=== PATIENT | male | born 1980 | race Asian ===

== ENCOUNTER 2017-05-25 08:49 | Observation (INO) | payer BC, MEDICAID ==
[~2017-05-25] VITALS: Ht 182.9 cm; Wt 109.5 kg
[~2017-05-25 08:49] MED LIST: ALBU18HF INH; UNK BP MED PO
[2017-05-25] MEDS ORDERED: LISI-170 PO (09:13)
[2017-05-25] MEDS ORDERED: ASPIRIN 81 MG TABLET CHEW ONE (09:18)
[2017-05-25] MEDS ORDERED: SODIUM CHLORIDE FLUSH 10ML SYR IVF ONE (09:30)
[2017-05-25] MEDS ORDERED: ASPIRIN 81 MG TABLET CHEW PO ONE (09:30)
[2017-05-25 09:33] LABS: BASOPHILS # (AUTO) 0.02 x10^3/uL (0-0.1); BASOPHILS % (AUTO) 0 % (0-1); EOSINOPHILS % (AUTO) 7 % (1-7); LYMPHOCYTES # (AUTO) 1.61 x10^3/uL (1-3.4); LYMPHOCYTES % (AUTO) 22 % (22-44); MD NO; MEAN CORPUSCULAR HEMOGLOBIN 29.9 pg (27.5-34.5); MEAN CORPUSCULAR HGB CONC 33.7 g/dL (33.2-36.2); MEAN CORPUSCULAR VOLUME 88.9 fL (81-97); MEAN PLATELET VOLUME 7.1 fL (7.4-10.4); MONOCYTES # (AUTO) 0.54 x10^3/uL (0.2-0.8); MONOCYTES % (AUTO) 8 % (2-9); NEUTROPHILS # (AUTO) 4.57 x10^3/uL (1.8-6.8); NEUTROPHILS % (AUTO) 63 % (42-75); PLATELET COUNT 316 x10^3/uL (130-400); RED BLOOD COUNT 5.56 x10^6/uL (4.38-5.82); RED CELL DISTRIBUTION WIDTH 12.7 % (9.4-14.8)
[2017-05-25 09:46] LABS: ALBUMIN 3.7 g/dL (3.4-5.0); ANION GAP 6 mmol/L (5-15); CALCIUM 8.2 mg/dL (8.5-10.1); CHLORIDE 105 mmol/L (98-107)
[2017-05-25 09:51] LABS: CREATININE 1.07 mg/dL (0.7-1.3); TROPONIN I 0.018 ng/mL (0.000-0.045)
[2017-05-25] MEDS ORDERED: LABETALOL 5MG/ML, 20ML ONE (10:30)
[2017-05-25] MEDS: LABETALOL 5MG/ML, 20ML IVPush PRN ×2 (10:33→11:11)
[2017-05-25] MEDS ORDERED: ALBUTEROL/IPRATROPIUM 2.5MG/0.5MG, 3 ML ONE (12:30)
[2017-05-25] MEDS: NICOTINE 14MG/24 HR PATCH.TD24 TD SCH (13:00)
[2017-05-25] MEDS ORDERED: ALBUTEROL/IPRATROPIUM 2.5MG/0.5MG, 3 ML NPPB ONE (13:00)
[2017-05-25] MEDS ORDERED: LABETALOL 5MG/ML, 20ML IVPush PRN (13:00)
[2017-05-25] MEDS ORDERED: hydrALAzine 20 MG/ML, 1ML IVPush PRN (13:00)
[2017-05-25] MEDS: LISINOPRIL 20 MG TABLET PO SCH (13:56)
[2017-05-25 14:04] VITALS: BP 183/125
[2017-05-25 14:15] LABS: TROPONIN I < 0.015 ng/mL (0.000-0.045)
[2017-05-25 15:28] VITALS: BP 154/102
[2017-05-25] MEDS: ALBUTEROL SULFATE 2.5 MG/3 ML NPPB SCH ×2 (19:00→20:00)
[2017-05-25 19:19] LABS: TROPONIN I < 0.015 ng/mL (0.000-0.045)
[2017-05-25 19:32] VITALS: BP_SYST 158; BP_SYST 159; BP_DIAS 101; BP_DIAS 81
[2017-05-25 21:11] LABS: MICROSCOPIC NOT IND
[2017-05-25 21:23] LABS: AMPHETAMINE SCREEN, URINE Negative (Negative); BARBITURATE SCREEN, URINE Negative (Negative); BENZODIAZEPINE SCREEN, URINE Negative (Negative); CANNABINOID SCREEN, URINE Positive (Negative); COCAINE SCREEN, URINE Negative (Negative); CULTURE INDICATED? NO; METHADONE SCREEN, URINE Negative (Negative); OPIATE SCREEN, URINE Negative (Negative)
[2017-05-26 03:00] VITALS: BP 143/79
[2017-05-26] MEDS: ALBUTEROL SULFATE 2.5 MG/3 ML NPPB SCH ×4 (05:44→17:28)
[2017-05-26 05:45] LABS: BASOPHILS # (AUTO) 0.03 x10^3/uL (0-0.1); BASOPHILS % (AUTO) 0 % (0-1); EOSINOPHILS # (AUTO) 0.62 x10^3/uL (0-0.4); EOSINOPHILS % (AUTO) 7 % (1-7); LYMPHOCYTES # (AUTO) 2.13 x10^3/uL (1-3.4); LYMPHOCYTES % (AUTO) 25 % (22-44); MD NO; MEAN CORPUSCULAR HEMOGLOBIN 30.2 pg (27.5-34.5); MEAN CORPUSCULAR HGB CONC 33.8 g/dL (33.2-36.2); MEAN CORPUSCULAR VOLUME 89.4 fL (81-97); MEAN PLATELET VOLUME 7.4 fL (7.4-10.4); MONOCYTES # (AUTO) 0.52 x10^3/uL (0.2-0.8); MONOCYTES % (AUTO) 6 % (2-9); NEUTROPHILS # (AUTO) 5.28 x10^3/uL (1.8-6.8); NEUTROPHILS % (AUTO) 62 % (42-75); PLATELET COUNT 331 x10^3/uL (130-400); RED BLOOD COUNT 5.14 x10^6/uL (4.38-5.82); RED CELL DISTRIBUTION WIDTH 12.5 % (9.4-14.8)
[2017-05-26 05:55] LABS: CHLORIDE 106 mmol/L (98-107)
[2017-05-26 06:11] LABS: ANION GAP 6 mmol/L (5-15); CALCIUM 8.1 mg/dL (8.5-10.1); CREATININE 1.06 mg/dL (0.7-1.3); THYROID STIMULATING HORMONE 0.821 mIU/L (0.358-3.740)
[2017-05-26 07:06] VITALS: BP 138/85
[2017-05-26] MEDS: LISINOPRIL 20 MG TABLET PO SCH (07:18)
[2017-05-26 12:43] VITALS: BP 161/79
[2017-05-26] MEDS: NICOTINE 14MG/24 HR PATCH.TD24 TD SCH (13:00)
[2017-05-26] MEDS ORDERED: NICO-487 TD (16:03)
== END 2017-05-26 17:59 | disposition home or self-care (01) ==
LOC: ED 09:16 → INTOOBSV 10:35 → EDIP 10:35 → 5SO 13:44
PROVIDERS: ADMIT Family Medicine; ATTEND Family Medicine
DX: I16.0 Hypertensive urgency (principal); I10 Essential (primary) hypertension; J45.909 Unspecified asthma, uncomplicated; F10.10 Alcohol abuse, uncomplicated; E83.51 Hypocalcemia; F17.210 Nicotine dependence, cigarettes, uncomplicated
CPT/HCPCS: 36415; 71045; 80048; 80307; 81003; 82040; 82330; 83880; 84443; 84484; 85025; 93005; 93306; 93975; 94640; 96374; 96376; 99285; G0378; J7613; J7620

== ENCOUNTER 2018-03-24 08:51 | Observation (INO) | payer BC ==
[~2018-03-24] VITALS: Ht 188 cm; Wt 115.1 kg
[~2018-03-24 08:51] MED LIST changes: +LISI-170 PO; +NICO-487 TD
[2018-03-24] MEDS ORDERED: MORPHINE SULFATE 4 MG/ML, 1ML IVPush PRN (09:30)
[2018-03-24] MEDS ORDERED: SODIUM CHLORIDE FLUSH 10ML SYR IVF ONE (09:30)
[2018-03-24] MEDS ORDERED: ASPIRIN 81 MG TABLET CHEW PO ONE (09:30)
--- NOTE | 2018-03-24 09:30 | NUR ---
C/O CHEST PAIN AND COUGH X 3 DAYS. PT IS ON ALL MNITORS WITH AUDIBLE ALARMS. SIGNIF. OTHER IS AT BEDISDE. CALL LIGHT IS WITHIN REACH. IV ACCESS OBTAINED.
[2018-03-24] MEDS ORDERED: ASPIRIN 81 MG TABLET CHEW ONE (09:43)
[2018-03-24 09:44] LABS: BASOPHILS # (AUTO) 0.03 x10^3/uL (0-0.1); BASOPHILS % (AUTO) 0 % (0-1); EOSINOPHILS # (AUTO) 0.68 x10^3/uL (0-0.4); EOSINOPHILS % (AUTO) 9 % (1-7); LYMPHOCYTES # (AUTO) 1.14 x10^3/uL (1-3.4); LYMPHOCYTES % (AUTO) 14 % (22-44); MD NO; MEAN CORPUSCULAR HEMOGLOBIN 30.3 pg (27.5-34.5); MEAN CORPUSCULAR HGB CONC 34.1 g/dL (33.2-36.2); MEAN CORPUSCULAR VOLUME 88.8 fL (81-97); MEAN PLATELET VOLUME 7.8 fL (7.4-10.4); MONOCYTES # (AUTO) 0.53 x10^3/uL (0.2-0.8); MONOCYTES % (AUTO) 7 % (2-9); NEUTROPHILS # (AUTO) 5.57 x10^3/uL (1.8-6.8); NEUTROPHILS % (AUTO) 70 % (42-75); PLATELET COUNT 275 x10^3/uL (130-400); RED BLOOD COUNT 5.61 x10^6/uL (4.38-5.82); RED CELL DISTRIBUTION WIDTH 12.5 % (9.4-14.8)
[2018-03-24] MEDS ORDERED: MORPHINE SULFATE 4 MG/ML, 1ML ONE (09:44)
[2018-03-24 09:54] LABS: ALANINE AMINOTRANSFERASE 27 U/L (12-78); ALBUMIN 4.2 g/dL (3.4-5.0); ANION GAP 7 mmol/L (5-15); CALCIUM 8.6 mg/dL (8.5-10.1); CHLORIDE 106 mmol/L (98-107); CREATININE 1.15 mg/dL (0.7-1.3)
[2018-03-24 09:59] LABS: ALKALINE PHOSPHATASE 70 U/L (45-117); BILIRUBIN,TOTAL 0.8 mg/dL (0.2-1.0); TOTAL PROTEIN 7.5 g/dL (6.4-8.2); TROPONIN I < 0.015 ng/mL (0.000-0.045)
[2018-03-24] MEDS ORDERED: KETOROLAC 30 MG/1 ML IVPush ONE (10:30)
[2018-03-24] MEDS ORDERED: hydrALAzine 20 MG/ML, 1ML IV ONE (10:30)
--- NOTE | 2018-03-24 10:40 | NUR ---
PT WAS MEDICATED ORDERED. CONTINUES TO BE HYPERTENSIVE. PT IS ON ALL MONITORS WITH AUDIBLE ALARMS. CALL LIGHT IS WITHIN REACH.
[2018-03-24] MEDS ORDERED: KETOROLAC 30 MG/1 ML ONE (10:44)
[2018-03-24] MEDS ORDERED: hydrALAzine 20 MG/ML, 1ML ONE (10:44)
--- NOTE | 2018-03-24 11:25 | NUR ---
PT TO BE ADMITTED. WAITING FOR ROOM ASSIGNMNET AND ADMIT ORDERS. PT IS ON ALL MONITORS WITH AUDIBLE ALARMS, AND IS RESTING IN GURNEY WITH EYES CLOSED.
[2018-03-24] MEDS ORDERED: ACETAMINOPHEN 325 MG TABLET PO PRN (12:30)
[2018-03-24] MEDS ORDERED: ENALAPRILAT 1.25 MG/ML, 2ML IVPush PRN (12:30)
[2018-03-24 12:38] VITALS: BP 199/111
[2018-03-24] MEDS ORDERED: ALBUTEROL SULFATE 2.5 MG/3 ML NPPB SCH (13:00)
[2018-03-24] MEDS: AMLODIPINE 10 MG TAB PO SCH (13:08)
[2018-03-24] MEDS: ALBUTEROL SULFATE 2.5 MG/3 ML NPPB PRN ×2 (13:29→19:15)
[2018-03-24 13:49] LABS: AMPHETAMINE SCREEN, URINE Negative (Negative); BARBITURATE SCREEN, URINE Negative (Negative); BENZODIAZEPINE SCREEN, URINE Negative (Negative); CANNABINOID SCREEN, URINE Positive (Negative); COCAINE SCREEN, URINE Negative (Negative); METHADONE SCREEN, URINE Negative (Negative); OPIATE SCREEN, URINE Positive (Negative)
[2018-03-24 14:00] LABS: RAPID INFLUENZA A Negative (Negative); RAPID INFLUENZA B Negative (Negative)
[2018-03-24 14:18] VITALS: BP 142/97
[2018-03-24 15:30] LABS: TROPONIN I < 0.015 ng/mL (0.000-0.045)
[2018-03-24] MEDS: KETOROLAC 30 MG/1 ML IV PRN (17:06)
[2018-03-24 18:41] VITALS: BP 162/112
[2018-03-24] MEDS: hydrALAzine 20 MG/ML, 1ML IVPush PRN (18:47)
[2018-03-24] MEDS ORDERED: BUDE10.2 INH (18:51)
[2018-03-24] MEDS: MONTELUKAST 10 MG TABLET PO SCH (19:54)
[2018-03-25] VITALS (9 sets, daily range): BP systolic 141–187; BP diastolic 86–125
[2018-03-25] MEDS: ALBUTEROL SULFATE 2.5 MG/3 ML NPPB PRN ×4 (03:50→21:58)
[2018-03-25] MEDS: hydrALAzine 20 MG/ML, 1ML IVPush PRN ×3 (04:44→21:12)
[2018-03-25] MEDS: LISINOPRIL 20 MG TABLET PO SCH (07:49)
[2018-03-25] MEDS: AMLODIPINE 10 MG TAB PO SCH (07:49)
[2018-03-25] MEDS: KETOROLAC 30 MG/1 ML IV PRN ×2 (09:45→21:28)
[2018-03-25] MEDS: MONTELUKAST 10 MG TABLET PO SCH (21:12)
[2018-03-26 03:31] VITALS: BP 153/88
[2018-03-26 07:09] VITALS: BP 160/98
[2018-03-26] MEDS: AMLODIPINE 10 MG TAB PO SCH (07:35)
[2018-03-26 08:25] VITALS: BP 181/110
[2018-03-26] MEDS: LISINOPRIL 20 MG TABLET PO SCH (08:30)
[2018-03-26] MEDS: ALBUTEROL SULFATE 2.5 MG/3 ML NPPB PRN ×2 (08:53→14:45)
[2018-03-26] MEDS ORDERED: HYDROCHLOROTHIAZIDE 12.5 MG CAPSULE PO SCH (09:00)
[2018-03-26 11:00] VITALS: BP 158/102
[2018-03-26 11:05] VITALS: BP 162/111
[2018-03-26] MEDS ORDERED: HYDROCHLOROTHIAZIDE 12.5 MG CAPSULE PO ONE (11:30)
[2018-03-26 12:34] VITALS: BP 160/88
[2018-03-26] MEDS ORDERED: MONT10TA9 PO (13:25)
[2018-03-26] MEDS ORDERED: LISI-170 PO (13:25)
[2018-03-26] MEDS ORDERED: AMLO10TA6 PO (13:25)
[2018-03-26] MEDS ORDERED: PRED20TA PO (13:25)
[2018-03-26] MEDS ORDERED: HYDR25TA6 PO (14:31)
== END 2018-03-26 15:13 | disposition home or self-care (01) ==
LOC: ED 09:38 → EDIP 11:34 → INTOOBSV 11:34 → 5SO 12:38
PROVIDERS: ADMIT Family Medicine; ATTEND Family Medicine
DX: J45.51 Severe persistent asthma with (acute) exacerbation (principal); R07.89 Other chest pain; I16.0 Hypertensive urgency; I10 Essential (primary) hypertension; F17.210 Nicotine dependence, cigarettes, uncomplicated; Z82.5 Family history of asthma and other chronic lower respiratory diseases
CPT/HCPCS: 36415; 71045; 80053; 80307; 83880; 84484; 85025; 85379; 87400; 93005; 94640; 96374; 96375; 96376; 99291; G0378; J0360; J1885; J7512; J7613